=== PATIENT | female | born 1990 | race Hispanic/Latino ===

== ENCOUNTER 2017-09-08 15:28 | Emergency (ER) | payer MEDICARE ==
[~2017-09-08 15:28] MED LIST: ESCI10TA54 PO; TRAZ-147 PO
== END 2017-09-08 16:25 | disposition home or self-care (01) ==
LOC: EDH 15:28
DX: R07.89 Other chest pain (principal); Z98.51 Tubal ligation status; Z90.49 Acquired absence of other specified parts of digestive tract
CPT/HCPCS: 71046; 93005

== ENCOUNTER 2017-12-13 13:02 | Emergency (ER) | payer MEDICARE ==
[~2017-12-13 13:02] MED LIST changes: -TRAZ-147 PO; +TRAZ-187 PO
[2017-12-13 13:54] LABS: APPEARANCE,URINE Clear (CLEAR); BILIRUBIN,URINE Negative (NEGATIVE); COLOR,URINE Yellow (YELLOW); GLUCOSE, URINE (UA) Negative (NEGATIVE); KETONES,URINE Negative (NEGATIVE); LEUKOCYTE ESTERASE ,URINE Negative (NEGATIVE); NITRATE,URINE Negative (NEGATIVE); OCCULT BLOOD,URINE Negative (NEGATIVE); PROTEIN,URINE Negative (NEGATIVE)
[2017-12-13 13:57] LABS: HCG,QUAL RESULT NEGATIVE (NEGATIVE)
[2017-12-13 14:25] LABS: BASOPHILS % (AUTO) 0.4 % (0.0-5.0); EOSINOPHILS % (AUTO) 0.9 % (0.0-8.0); HEMATOCRIT 38.3 % (36-48); MEAN CORPUSCULAR HEMOGLOBIN 31.2 pg (27.0-33.0); MEAN CORPUSCULAR HGB CONC 34.6 g/dL (32.0-36.0); MEAN CORPUSCULAR VOLUME 90.2 fL (79-99); MONOCYTES % (AUTO) 6.9 % (3.0-13.0); NEUTROPHILS % (AUTO) 71.8 % (40.0-77.0); PLATELET COUNT (AUTO) 373 K/uL (130-400); RED BLOOD CELL COUNT(AUTO) 4.24 MIL/uL (4.00-5.50); RED CELL DISTRIBUTION WIDTH 13.1 % (11.0-15.5); WHITE BLOOD COUNT (AUTO) 12.5 K/uL (4.8-10.8)
[2017-12-13] MEDS ORDERED: IOPAMIDOL-370 75 ML VIAL IV ONE (14:33)
[2017-12-13 14:44] LABS: CREATININE 0.7 mg/dL (0.5-1.5); POTASSIUM 4.2 mmol/L (3.5-5.1)
[2017-12-13 14:49] LABS: ALBUMIN 3.9 g/dL (3.5-5.0); BILIRUBIN,TOTAL 0.4 mg/dL (0.2-1.0); TOTAL PROTEIN, SERUM 7.9 g/dL (6.0-8.3)
[2017-12-13] MEDS ORDERED: DiphenhydrAMINE HCL 50 MG/ML VIAL ONE (15:02)
[2017-12-13] MEDS ORDERED: SODIUM CHLORIDE 0.9% 1000ML 1,000 ML IV ONE (15:02)
[2017-12-13] MEDS ORDERED: METHYLPREDNISOLONE SOD SUCC 125MG/2ML VIAL ONE (15:03)
[2017-12-13] MEDS ORDERED: CEFTRIAXONE SODIUM 500 MG VIAL ONE (16:54)
[2017-12-13] MEDS ORDERED: AZITHROMYCIN 250 MG TABLET PO ONE (16:55)
== END 2017-12-13 17:31 | disposition home or self-care (01) ==
LOC: EDH 13:02
DX: N73.9 Female pelvic inflammatory disease, unspecified (principal); N76.0 Acute vaginitis; Z98.51 Tubal ligation status; Z90.710 Acquired absence of both cervix and uterus
CPT/HCPCS: 36415; 74177; 80053; 81003; 81025; 85025; 87210; 87486; 87797; 96372; 96374; 96375; 99285; J0696; J1200; J2930; J7030; Q9967

== ENCOUNTER 2020-06-04 11:49 | Emergency (ER) | payer MEDICARE ==
[2020-06-04] MEDS ORDERED: ONDANSETRON ODT 4 MG TAB ONE (12:32)
[2020-06-04] MEDS ORDERED: DICYCLOMINE HCL 10 MG/ML 2ML AMP IM ONE (12:47)
== END 2020-06-04 13:58 | disposition home or self-care (01) ==
LOC: EDH 11:49
DX: K52.89 Other specified noninfective gastroenteritis and colitis (principal)
CPT/HCPCS: 96372; 99283; J0500

== ENCOUNTER 2022-12-30 16:02 | Emergency (ER) | payer MEDICARE ==
[~2022-12-30] VITALS: Ht 147.3 cm; Wt 68.9 kg
[~2022-12-30 16:02] MED LIST changes: +ESCI-8 PO; -ESCI10TA54 PO
[2022-12-30] MEDS ORDERED: AMOX500C2 PO (16:21)
[2022-12-30 16:30] VITALS: BP 128/78
[2022-12-30] MEDS ORDERED: KETOROLAC 15MG/ML VIAL (15MG/ML) IM ONE (16:30)
== END 2022-12-30 16:36 | disposition home or self-care (01) ==
LOC: EDH 16:02
DX: K04.7 Periapical abscess without sinus (principal)
CPT/HCPCS: 99283; 96372; J1885

== ENCOUNTER 2023-02-06 21:25 | Emergency (ER) | payer OTHER, MEDICARE ==
[~2023-02-06] VITALS: Ht 149.9 cm; Wt 68.9 kg
[~2023-02-06 21:25] MED LIST changes: +AMOX500C2 PO
[2023-02-06 21:27] VITALS: BP 134/79; PULSE 83; RESP 16
[2023-02-06 22:43] LABS: APPEARANCE,URINE CLEAR (CLEAR); BILIRUBIN,URINE NEGATIVE (NEGATIVE); COLOR,URINE LIGHT-YELLOW (YELLOW); GLUCOSE, URINE (UA) NEGATIVE (NEGATIVE); KETONES,URINE NEGATIVE (NEGATIVE); LEUKOCYTE ESTERASE ,URINE 75 Leu/uL (NEGATIVE); NITRATE,URINE NEGATIVE (NEGATIVE); OCCULT BLOOD,URINE NEGATIVE (NEGATIVE); PH,URINE 6.5 (5.0-8.0); PROTEIN,URINE NEGATIVE (NEGATIVE); UROBILINOGEN,URINE 0.2 mg/dL (0.2-1.0)
[2023-02-06 22:53] LABS: MUCUS,URINE RARE LPF (None Seen); SQUAMOUS EPITHELIAL CELL,UR RARE /HPF (0-2)
[2023-02-06] MEDS ORDERED: CEFTRIAXONE 1G VIAL IM ONE (23:30)
[2023-02-06] MEDS ORDERED: LIDOCAINE HCL 1% 20 ML VIAL ONE (23:31)
[2023-02-06] MEDS ORDERED: NITR100C PO (23:38)
[2023-02-07] MEDS ORDERED: LIDOCAINE HCL 1% 20 ML VIAL INJ SCH
== END 2023-02-06 23:49 | disposition home or self-care (01) ==
LOC: EDH 21:25
DX: N39.0 Urinary tract infection, site not specified (principal); F32.A Depression, unspecified
CPT/HCPCS: 99283; 87088; 81001; 96372; J0696

== ENCOUNTER 2024-10-27 11:14 | Emergency (ER) | payer MEDICARE ==
[~2024-10-27] VITALS: Ht 147.3 cm; Wt 87.1 kg
[~2024-10-27 11:14] MED LIST changes: +CORTSOL AD; +IBUP-2077 PO; +NITR100C PO
[2024-10-27] MEDS: CYCLOBENZAPRINE HCL 10 MG TABLET PO ONE (11:54)
[2024-10-27] MEDS: acetaMINOPHEN 325 MG TAB PO ONE (11:54)
[2024-10-27 12:44] LABS: APPEARANCE,URINE CLEAR (CLEAR); BILIRUBIN,URINE NEGATIVE (NEGATIVE); COLOR,URINE COLORLESS (YELLOW); GLUCOSE, URINE (UA) NEGATIVE (NEGATIVE); KETONES,URINE NEGATIVE (NEGATIVE); LEUKOCYTE ESTERASE ,URINE NEGATIVE Leu/uL (NEGATIVE); NITRATE,URINE NEGATIVE (NEGATIVE); OCCULT BLOOD,URINE NEGATIVE (NEGATIVE); PROTEIN,URINE NEGATIVE (NEGATIVE); UROBILINOGEN,URINE 0.2 mg/dL (0.2-1.0)
[2024-10-27 12:45] LABS: HCG,QUALITATIVE URINE NEGATIVE (NEGATIVE)
[2024-10-27 12:46] LABS: ADD UA MICROSCOPIC NO
--- NOTE | 2024-10-27 12:59 | ERN ---
ED Note History of Present Illness Stated Complaint: LT EARACHE Chief Complaint: Earache Time Seen by MD: 11:16 Time Seen by Midlevel: 11:16 Dictation: The patient is a 34-year-old female with a history of hyperlipidemia who presents to the emergency department with complaints of left thigh ear eight ringing onset yesterday. Patient denies any fevers, sore throat, ear trauma. Patient also reports mid lower back pain that has been going on for a month. Denies any trauma. Denies any urinary or fecal incontinence. Allergies: Coded Allergies: Iodinated Contrast Media (Unverified Allergy, Unknown, 12/30/22) No Known Drug Allergies (Verified Allergy, Unknown, 06/09/17) Home Meds Active Scripts Neomy Sulf/Polymyx B Sulf/Hc (Cortisporin Otic Soln) 3.5 Mg/Ml-10,000 Unit/Ml-1 % Otsol, 2 DROP AD QID, #1 BOTTLE Prov:JASEN US Jr. [employer] 10/06/23 Ibuprofen (Ibuprofen 800 mg Tab) 800 Mg Tab, 800 MG PO TID PRN for PAIN, #30 TAB Prov:JASEN US Jr. [employer]IE[employer]ER 10/06/23 Nitrofurantoin Macrocrystal (Nitrofurantoin) 100 Mg Capsule, 100 MG PO BID for 5 Days, #10 CAP 0 Refills Prov:JULI PETERSON [employer] 02/06/23 Amoxicillin (Amoxicillin) 500 Mg Capsule, 500 MG PO TID for 7 Days, #21 CAP 0 Refills Prov:LUH DUMONT [employer] 12/30/22 Reported Medications Escitalopram Oxalate (Escitalopram Oxalate) 10 Mg Tablet, 10 MG PO AM, TAB 06/10/17 Trazodone HCl (Trazodone HCl) 100 Mg Tablet, 100 MG PO HS, TAB 06/10/17 Past Medical History Past Medical History: High Cholesterol Additional Past Medical Hx: BELLS PALSY, Fatty Liver, Obesity Surgical History: Cholecystectomy, Family History: DM Social History: Negative, Lives with family LMP: Oct 23, 2024 RN Note Reviewed/Agreed w/PFSH: Yes Review of System Dictation Constitutional: Negative for fever,chills, and weight loss Eyes: Negative for injury, pain,redness, and discharge ENT: Negative for injury or swelling positive for left ear Cardiovascular: Negative for chest pain, palpitations, and edema Respiratory: Negative for shortness of breath, cough, and wheezing, Abdomen/GI: Negative for abdominal pain, nausea, vomiting, diarrhea, and constipation Back: Negative for injury and pain : Negative for injury, bleeding and discharge MS/Extremity: Negative for injury and deformity for low back pain Skin: Negative for rash, and discoloration Neuro: Negative for headache, weakness, numbness, tingling, and seizure Psych: Negative for suicide ideation, homicidal ideation, and hallucinations Initial Vital Sign VS Vital Signs Date Time Temp Pulse Resp B/P (MAP) Pulse Ox O2 Delivery O2 Flow Rate FiO2 10/27/24 11:16 98.1 72 20 124/76 Room Air Physical Exam Dictation Vital Signs reviewed General Appearance: Alert, oriented x 3, no acute distress, well developed, nourished. Head and Face: non-traumatic. Eyes: PERRL, pink conjunctivas, eyelid no trauma, anterior chamber with arcus senilis. Ears: Pinnas intact and no signs of trauma or erythema ear canals clear and no discharge, to left no drainage tympanic membrane able to visualize due to. Cerumen Nose: No discharge, no bleeding. Oropharynx: Mouth normal, tongue pink. pharynx clear,no erythema, tonsils no exudates, no abscesses noted, mucous membrane moist Neck: Supple, non-tender, no thyromegaly, no masses, no JVD, no bruits Breast:Deferred Chest:No tenderness, no crepitus, no paradoxical movement, no retractions Lungs:Clear, well-ventilated, symmetric, no rales, no wheezing, no rhonchi, no stridor, good breath sounds bilaterally Heart: Regular rate, regular rhythm, no murmur, no gallops Vascular: no peripheral edema, dorsalis pedis two bilaterally. Abdomen: Soft, positive bowel sounds, nondistended, no guarding, nontender, no rebound, no masses no hepatomegaly, no splenomegaly, no Torres's sign, no hernias. Rectal: Deferred Genital: Deferred Neurological: Normal speech, motor function intact, sensory function intact Musculoskeletal: Neck nontender, full range of motion, back nontender, full range of motion, Extremities: nontender, full range of motion Skin: Color pink, dry, no turgor, no rash, no lacerations, no abrasions, no contusions. Lymphatic: Deferred Results (Laboratory/Radiology) Laboratory/Radiology Laboratory Tests Test 10/27/24 12:32 Urine Color COLORLESS (YELLOW) Urine Appearance CLEAR (CLEAR) Urine pH 6.0 (5.0-8.0) Urine Specific [place] 1.004 (1.001-1.031) Urine Protein NEGATIVE mg/dL (NEGATIVE) Urine Glucose (UA) NEGATIVE mg/dL (NEGATIVE) Urine Ketones NEGATIVE mg/dL (NEGATIVE) Urine Occult Blood NEGATIVE (NEGATIVE) Urine Nitrate NEGATIVE (NEGATIVE) Urine Bilirubin NEGATIVE mg/dL (NEGATIVE) Urine Urobilinogen 0.2 mg/dL (0.2-1.0) Urine Leukocyte Esterase NEGATIVE Radha/uL Urine HCG, Qualitative NEGATIVE (NEGATIVE) Labs Reviewed?: Yes EKG: (+) rhythm ED Course ED Course Orders Procedure Category Date Status Time Urinalysis Profile LAB 10/27/24 Complete 11:26 ,Urine Test LAB 10/27/24 Complete 11:26 Lumbar Spine 2-3vws RAD 10/27/24 Taken 11:26 Acetaminophen 325 Tab PHA 10/27/24 Complete (Tylenol 325mg Tab 11:30 Cyclobenzaprine Hcl PHA 10/27/24 Complete (Cyclobenzaprine Hcl 11:30 Current Medications Medications (Trade) Dose Ordered Sig/Bethany Route PRN Reason Start Time Stop Time Status Last Admin Dose Admin Acetaminophen (TYLenol 325MG TAB) 650 mg ONCE ONCE PO 10/27/24 11:30 10/27/24 11:31 DC 10/27/24 11:54 Cyclobenzaprine HCl (Cyclobenzaprine HCl) 5 mg ONCE ONCE PO 10/27/24 11:30 10/27/24 11:31 DC 10/27/24 11:54 Vital Signs Date Time Temp Pulse Resp B/P (MAP) Pulse Ox O2 Delivery O2 Flow Rate FiO2 10/27/24 11:16 98.1 72 20 124/76 Room Air Medical Decision Making MDM The patient is a 34-year-old female with a history of hyperlipidemia who presents to the emergency department with complaints of left thigh ear eight ringing onset yesterday. Patient denies any fevers, sore throat, ear trauma. Patient also reports mid lower back pain that has been going on for a month. Denies any trauma. Denies any urinary or fecal incontinence X-ray showed no obvious fractures. Patient with full range of movement to lower extremities, ambulatory, neurovascularly intact. Patient's left ear with erythematous tympanic membrane. We will be discharged on antibiotics patient is a distress, nontoxic appearance Differential diagnosis: Otitis media, otitis externa strain, lumbar fracture Need for hospitalization: Patient does not meet criteria for hospitalization. There are no social concerns with this patient. DX & DISP Disposition: Discharge Departure Impression: Primary Impression: Otitis media, left Additional Impression: Low back strain Condition: Stable Scripts Amoxicillin (Amoxicillin) 500 Mg Tablet 1 TAB PO TID for 7 Days, #21 TAB 0 Refills Prov: SIMBA PALACIO 10/27/24 Additional Instructions: Please take medications as prescribed. Please follow up with the primary doctor in 1-2 days. If symptoms worsen please return to ER. FOLLOW-UP WITH PRIMARY CARE PROVIDER IN 1 TO 2 DAYS. TAKE MEDICATIONS DIRECTED HERE IN THE EMERGENCY ROOM. OKAY TO CONTINUE HOME MEDICATIONS UNLESS OTHERWISE DISCUSSED DURING YOUR VISIT IN THE EMERGENCY ROOM TODAY. RETURN TO YOUR NEAREST EMERGENCY ROOM IF SYMPTOMS WORSEN OR IF THERE IS NO IMPROVEMENT. CALL 911 IF YOU NEED IMMEDIATE ASSISTANCE. TAKE TYLENOL OR MOTRIN [id number] NEEDED AND IF NO CONTRAINDICATIONS ARE PRESENT. INCREASE ORAL HYDRATION. A WOUND CULTURE OR URINE CULTURE WAS ORDERED HERE IN THE EMERGENCY ROOM DEPARTMENT PLEASE FOLLOW-UP WITH PRIMARY CARE PROVIDER AND ADVISE THEM TO GET REPEAT PORTS FROM OUR FACILITY. IF YOU HAD ANY CALEB WRAP/SPLINTS THAT WERE APPLIED HERE, PLEASE DO NOT REMOVE THEM UNTIL YOU SEE YOUR PRIMARY CARE OR SPECIALTY. Referrals: ALEXANDRA CORRALES MD (PCP) Time of Disposition: 13:06 I have reviewed the case, and I agree with, Diagnosis and Plan SIMBA PALACIO Oct 27, 2024 12:59
[2024-10-27] MEDS ORDERED: AMOX500T2 PO (13:06)
[2024-10-27 13:08] VITALS: BP 121/75; PULSE 70; RESP 18; TEMP 98.2; O2SAT 98
--- NOTE | 2024-10-27 13:49 | HMCIMG ---
LUMBAR SPINE RADIOGRAPHS - 2-3 VIEWS INDICATION: Back pain COMPARISON: None FINDINGS: AP, lateral, and coned-down lateral views. Normal lordotic curvature of the lumbar spine is maintained. Five nonrib-bearing lumbar vertebral bodies are noted. No acute fracture or subluxation identified. Vertebral body heights are well-maintained. Disc spaces are well-preserved. Multilevel mild anterior endplate osteophytic spurring. IMPRESSION: No fracture or subluxation identified.
== END 2024-10-27 13:11 | disposition home or self-care (01) ==
LOC: EDH 11:14
DX: S39.012A Strain of muscle, fascia and tendon of lower back, initial encounter (principal); H66.92 Otitis media, unspecified, left ear; E66.9 Obesity, unspecified; E78.00 Pure hypercholesterolemia, unspecified; Z79.899 Other long term (current) drug therapy; Z90.49 Acquired absence of other specified parts of digestive tract; Z91.041 Radiographic dye allergy status; Z98.890 Other specified postprocedural states; X58.XXXA Exposure to other specified factors, initial encounter; Y93.89 Activity, other specified; Y92.89 Other specified places as the place of occurrence of the external cause; Y99.8 Other external cause status
CPT/HCPCS: 72100; 81003; 81025; 99284